=== PATIENT | female | born 1980 ===

== ENCOUNTER 2025-07-21 06:42 | Day surgery (SDC) | payer OTHER ==
[~2025-07-21 06:42] MED LIST: Albuterol 0.083% 2.5 MG/3 ML Neb Soln NEB PRN; Midazolam 1 MG/ML 2 ML SDV ONE; Naloxone 0.4 MG/ML SDV IVPUSH PRN; Ondansetron 4 MG/2 ML SDV IVPUSH PRN; Scopalamine 1mg/3day Transdermal Patch TOP ONE; dexmedeTOMIDine HCl 200 MCG/2 ML SDV ONE; fentaNYL 50 MCG/ML SDV IVPUSH PRN
[2025-07-21] MEDS ORDERED: Midazolam 1 MG/ML 2 ML SDV IVPUSH ONE (06:45)
[2025-07-21] MEDS ORDERED: fentaNYL 50 MCG/ML SDV IVPUSH PRN (06:58)
[2025-07-21] MEDS ORDERED: Naloxone 0.4 MG/ML SDV IVPUSH PRN (06:58)
[2025-07-21] MEDS ORDERED: Albuterol 0.083% 2.5 MG/3 ML Neb Soln NEB PRN (06:58)
[2025-07-21] MEDS ORDERED: Ondansetron 4 MG/2 ML SDV IVPUSH PRN (06:58)
[2025-07-21] MEDS: Lactated Ringers 1,000 ML IV SCH (07:25)
[2025-07-21] MEDS ORDERED: propofoL 500 MG/50 ML 50 ML ONE (07:40)
[2025-07-21] MEDS ORDERED: Propofol 200 MG/20 ML SDV ONE (07:40)
[2025-07-21] MEDS ORDERED: fentaNYL 100 MCG/2 ML SDV ONE (07:43)
[2025-07-21] MEDS ORDERED: ceFAZolin 2 GM in Water For Injection, Sterile 20 ML IVPUSH ONE (08:00)
[2025-07-21] MEDS ORDERED: Ketamine HCL/NACL, ISO-OSM 50 MG/5 ML Syringe ONE (08:12)
[2025-07-21] MEDS ORDERED: Dexamethasone 4 MG/ML 5 ML MDV ONE (08:30)
[2025-07-21] MEDS ORDERED: Ondansetron 4 MG/2 ML SDV ONE (08:30)
[2025-07-21] MEDS ORDERED: Ketorolac 30 MG/ML SDV ONE (08:30)
== END 2025-07-21 10:34 | disposition home or self-care (01) ==
LOC: MW.SDS 06:42
PROVIDERS: ATTEND Orthopaedic Surgery
DX: S52.501A Unspecified fracture of the lower end of right radius, initial encounter for closed fracture (principal); W10.8XXA Fall (on) (from) other stairs and steps, initial encounter
CPT/HCPCS: 25607; 76000; C1713; C1776; J0665; J0690; J1100; J1885; J2003; J2250; J2405; J2704; J3010; J7120; J7999; 01830; 64415; J2371; J3490